=== PATIENT | female | born 1985 ===

== ENCOUNTER 2016-07-09 13:56 | Emergency (ER) | payer OTHER ==
--- NOTE | 2016-07-09 23:57 | ED NURSING NOTES ---
Clinical Report - Nurses [facility] [address] [place] [address] 07/09/2016 13:59 Patient: JOSEPH BARRERA TRIAGE Triage time 14:01. Acuity: LEVEL 2. Chief Complaint: DRUG OVERDOSE and SUICIDE ATTEMPT. Alert. No acute distress. ( Pt. states she attempted suicide by taking a bottle of pills. She said she took a bottle of Seroquel 50mg tabs. The spouse said he thinks there was approx. 15 tabs left in the bottle.). SEPSIS SCREEN: Sepsis Screen. Negative (no infection suspected/documented). GEREMIAS COMA SCORE: [place] Coma Scale: 15- eyes open spontaneously (4); best verbal response- oriented x 4 (5); best motor response- obeys commands (6). --14:13 Rosalee Braun R.N. 14:01 07/09/16. BP: 134/75. HR: 125. RR: 16. O2 saturation: 96%. Temp: 98.4 F. Pain level now 0/10. --14:13 Rosalee Braun R.N. Weight: 56.6 kg stated. Height/Length: 59 inches Per Patient. BMI: 25.2. --14:01 Rosalee Braun R.N. Medications LaMICtal Oral 125mg daily. --14:05 Rosalee Braun R.N. BusPIRone HCl Oral 15 mg, 2x a day. --14:05 Rosalee Braun R.N. TraZODone HCl Oral, as needed. --14:05 Rosalee Braun R.N. Control Pills. --14:05 Rosalee Braun R.N. SEROquel Oral 50mg, as needed. --14:05 Rosalee Braun R.N. Allergies No Known Drug Allergy. --14:05 Rosalee Braun R.N. History Arrived by private vehicle. Historian: patient. Accompanied by spouse. Primary physician (MORGAN in [place]). This occurred today 1 hour ago. Treatment SOFTWARE QUALITY AUTOMATION ENGINEER: None. PAST MEDICAL HX: Last normal menstrual period- 1 week ago. SOCIAL HX: Never smoker. No alcohol use or drug use. ABUSE ASSESSMENT: Abuse assessment: The patient was asked "Do you feel safe in your home?" and "Has anyone hurt you or threatened to hurt you?". No report of abuse. SELF HARM ASSESSMENT: A self harm assessment was performed. The patient answered "yes" to the question "Have you recently felt down, depressed, or hopeless?", "Have you noticed less interest or pleasure in doing things?", "Do you have thoughts of harming or killing yourself?", "Are you here because you tried to hurt yourself?" and "Have you ever tried to hurt yourself before today?" and "no" to the question "Have you recently had thoughts about harming or killing others?" and "Do you have any dangerous items in your possession?". In the ED the patient has been withdrawn. A further in-depth assessment is planned. She has been placed under continuous supervision. She was placed in direct sight of the nurses station. Clothes and valuables were removed and placed at the nurses station. The ED physician has been notified. NUTRITIONAL RISK ASSESSMENT: The nutritional risk assessment revealed no deficiencies. FUNCTIONAL ASSESSMENT: Functional assessment: no impairments noted. LEARNING NEEDS ASSESSMENT: The learning needs assessment revealed no barriers. --14:13 Rosalee Braun R.N. PROBLEMS: Suicidal Ideation. Anxiety Reaction. Depression. Abdominal Pain. Bipolar Disorder. --14:07 Rosalee Braun R.N. Interventions ID band on patient. Ambulatory. --14:13 Rosalee Braun R.N. PHYSICAL ASSESSMENT 14:01. Ambulatory to room. GENERAL / NEURO / PSYCH: Alert. Oriented X 4. Appears in no acute distress. Patient appears calm and cooperative. Gag reflex present. Patient's speech is slurred. RESPIRATORY: Respirations not labored. CVS: Capillary refill less than 2 seconds. SKIN: Skin intact. Skin is warm and dry. Affect appears within normal limits. --14:13 Rosalee Braun R.N. NURSING PROGRESS NOTES 14:05. call or contact centre team leader, pulse oximeter and NIBP monitor placed on patient; roll examiner- Lead II; monitor alarms on. Patient gowned. Head of bed elevated. Suicide precautions initiated: a safety sweep of the room has been completed. Room made safe. Continuous one on one supervision, family at bedside, clothing / valuables removed and placed at the nurse's station. ED Physician has been notified. Two patient identifiers checked. Call light placed in reach. Side rails up x 2. Bed placed in lowest position. Brakes of bed on. Patient ready for evaluation- chart flagged. --14:14 Rosalee Braun R.N. 14:06 07/09/2016 Site #1 started via IV in the right antecubital space with an 20g angiocath, with aseptic technique and good blood return; one attempt. Blood drawn: rainbow set. Labeled in the presence of the patient and sent to the lab. Saline lock flushed with 10 mL saline (accessed by JEFF Ortiz). --14:18 Rosalee Braun R.N. 14:08 07/09/2016 Started bag #1 1000 mL IV Fluids IV NS (Saline); at 1000 mL/hr over 1 hour(s) via site #1 via IV pump. Allergies verified and confirmed 5 rights. IV patency established. IV site checked: no pain, redness, or swelling. IV flushed thoroughly pre- and post-medication administration. --14:19 Rosalee Braun R.N. 14:19 07/09/2016 Activated Charcoal (Charcoal) PO 50 gm given. Allergies verified and confirmed 5 rights. --14:19 Rosalee Braun R.N. EKG time: (1407). EKG was ordered, performed by a tech and shown to the ED physician. --14:28 Maria Esther Magana 14:40 07/09/2016 Site #2 started via IV in the right wrist with an 20g angiocath; one attempt. Saline lock flushed with 10 mL saline. --14:46 Rosalee Braun R.N. <<STRICKEN ENTRY-- 14:46 07/09/2016 Started bag #1 1000 mL IV Fluids IV NS (Saline); at 1000 mL/hr over 1 hour(s) via site #2 via IV pump. Allergies verified and confirmed 5 rights. IV patency established. IV site checked: no pain, redness, or swelling. IV flushed thoroughly pre- and post-medication administration. --14:46 Rosalee Braun R.N. --END STRIKE>> Other. --15:14 Rosalee Braun R.N. ( Pt. remains alert and oriented x4 but is sleepy.). --14:47 Rosalee Braun R.N. 14:47 07/09/16. BP: 129/66. HR: 110. RR: 15. O2 saturation: 100%. --14:47 Rosalee Braun R.N. 14 fr montoya catheter. Reason for indwelling catheter: patient's decreased level of consciousness. During procedure hand hygiene observed and sterile equipment and aseptic technique used. Return of 200 mL yellow-colored clear urine; attached to bedside drainage bag positioned below the bladder and secured with velcro. She tolerated procedure well. --14:48 Rosalee Braun R.N. EKG time: (1407). EKG was ordered, performed by a tech and shown to the ED physician. --14:48 Rosalee Braun R.N. 14:46 07/09/2016 Started bag #2 1000 IV Fluids IV NS (Saline); at 1000 mL/hr over 1 hour(s) via site #2 via IV pump. Allergies verified and confirmed 5 rights. IV patency established. IV site checked: no pain, redness, or swelling. IV flushed thoroughly pre- and post-medication administration. --15:14 Rosalee Braun R.N. 15:15 07/09/16. BP: 118/64. HR: 100. RR: 18. O2 saturation: 100%. --15:16 Rosalee Braun R.N. 15:56 07/09/16. BP: 112/67. HR: 87. RR: 12. O2 saturation: 100%. Pain level now 0/10. --15:57 Rosalee Braun R.N. 15:10 07/09/2016 IV Fluids IV NS Discontinued: bag #1 infused. Total amount infused: 1000 mL. IV patency established. IV site checked: no pain, redness, or swelling. IV flushed thoroughly. --17:47 Rosalee Braun R.N. 15:14 07/09/2016 IV Fluids IV NS Discontinued: bag #2 infused. Total amount infused: 1000 mL. IV patency established. IV site checked: no pain, redness, or swelling. IV flushed thoroughly. --15:14 Rosalee Braun R.N. 17:48 07/09/16. BP: 106/65. HR: 73. RR: 10. O2 saturation: 100%. --17:49 Rosalee Braun R.N. Care transferred and report given (to JEFF Betancourt). --19:13 Rosalee Braun R.N. The patient is sleeping. --19:46 TonyaB, R.N. 19:45 07/09/16. BP: 96/61. HR: 76. RR: 18. O2 saturation: 99%. Temp: deferred. Pain level now: 0/10. --19:46 TonyaB, R.N. ( pt will awaken to painful stimuli, family is at bedside at this time, VSS, good urine output via montoya, clear yellow urine noted). --19:48 TonyaB, R.N. The patient is sleeping. ( VSS, pt will awaken to name, pt is very sleepy). --21:05 Shari, R.N. ( spoke with poison control and they have closed her case at this time unless we need them.). --21:48 TonyaB, R.N. The patient is sleeping. --22:11 TonyaB, R.N. 22:10 07/09/16. BP: 98/61. HR: 82. RR: 18. O2 saturation: 99%. Temp: deferred. Pain level now: 0/10. --22:11 TonyaB, R.N. ( pt sitting in bed and drinking water at this time, PAT team christinaal complete). --23:38 TonyaB, R.N. ( removed montoya, pt tolerated well). --23:56 TonyaB, R.N. 23:56 07/09/16. BP: 101/64. HR: 72. RR: 16. O2 saturation: 99%. Temp: 98.4 F. Pain level now: 0/10. --23:57 TonyaB, R.N. Intake & Output Urine: 800 mL, with return of yellow-colored clear urine; attached to bedside drainage bag. --19:51 Boris Mccarthy Urine, with return of 300 mL yellow-colored clear urine. --23:56 Boris Mccarthy DISPOSITION / DISCHARGE 00:17 07/10/2016 Site #1 removed upon discharge. Catheter intact. Bandaid applied. --00:17 Boris Mccarthy 00:17 07/10/2016 Site #2 removed upon discharge. Catheter intact. Bandage applied. --00:17 Boris Mccarthy Departure time: 00:17. Condition at departure: improved. No learning barriers present. Discharge instructions provided and reviewed with the patient and spouse. Reviewed referral to a psychiatrist. Patient and spouse verbalized understanding. Written instructions provided in Venezuelan. No warning instructions, medication instructions, treatment instructions, diet instructions or activity restrictions. No follow up contact number given or stop smoking instructions. No work note given. The patient was discharged by the physician. She was discharged home and accompanied by spouse. She left the Emergency Department ambulatory and via private vehicle. Spouse driving. FALL RISK ASSESSMENT: Fall risk assessment completed. No fall risk identified. --00:17 Boris Mccarthy 00:17 07/10/16. BP: deferred. HR: deferred. RR: deferred. O2 saturation: deferred. Temp: deferred. Pain level now: 0/10. --00:21 Boris Mccarthy Locked/Released at 07/10/2016 0:22 by Boris Mccarthy
--- NOTE | 2016-07-09 23:57 | ED CLINICAL REPORT ---
Clinical Report - Physicians/Mid Levels [facility] [address] [place] [address] 07/09/2016 13:59 Patient: JOSEPH BARRERA Time Seen: 14:03; initial patient contact. Arrived- By private vehicle. Historian- patient and family. CPT: ER phys charges level 4 (#[id number]). HISTORY OF PRESENT ILLNESS Chief Complaint: DRUG OVERDOSE and SUICIDE ATTEMPT. This occurred 1 hour ago. Toxic symptoms present in ED with drowsiness. Single drug taken- ~ 15 Seroquel 50 mg IR. Rescue was likely for this event. She sought help. She has experienced situational problems related to spouse, work and school. No alcohol recently or recent drug use. The symptoms are described as moderate. The patient has been depressed. No anger, hallucinations or delusions. Has had suicidal thoughts but not been upset. Not paranoid. Similar symptoms previously: Several times. Recent medical care: Not recently seen/assessed. REVIEW OF SYSTEMS No headache, dizziness, chest pain, palpitations or abdominal pain. No vomiting. All systems otherwise negative, except as recorded above. PAST HISTORY Prior suicide attempt. ( Suicidal Ideation. Anxiety Reaction. Depression. Abdominal Pain. Bipolar Disorder). Medications: SEROquel Oral 50mg, as needed. Control Pills. TraZODone HCl Oral, as needed. BusPIRone HCl Oral 15 mg, 2x a day. LaMICtal Oral 125mg daily. Allergies: No Known Drug Allergy. SOCIAL HISTORY Never smoker. No alcohol use or drug use. Has social support. Has place to stay. ADDITIONAL NOTES The nursing notes have been reviewed. PHYSICAL EXAM Vital Signs: 07/09/2016 14:01 BP: 134/75. HR: 125. RR: 16. O2 saturation: 96%. Temp: 98.4 F. Have been reviewed. Blood pressure normal. Tachycardic. Respiratory rate normal. Temperature normal. Oxygen saturation normal. Appearance: The patient is lethargic. Patient in mild distress. Eyes: Pupils equal, round and reactive to light. No nystagmus. Extraocular movements normal. ENT: Pharynx normal. No trouble handling secretions. Neck: Normal inspection. CVS: Tachycardia. Heart sounds normal. Rhythm normal. Respiratory: No respiratory distress. Breath sounds normal. Abdomen: Soft and nontender. No organomegaly. Skin: Skin warm and dry. Normal skin color. No rash. Extremities: No lower extremity edema. Neuro: No seizure activity. Alertness is decreased. Speech normal. Cranial nerves normal (as tested). No cerebellar findings. No motor deficit. No sensory deficit. LABS, X-RAYS, AND EKG EKG: EKG time: (1407). Narrow-complex tachycardia (ventricular rate 122). Sinus tachycardia. Normal P waves. Normal NOLVIA. Normal QRS complex. Normal axis. Normal ST and T waves, QT and QTc. Prior EKG unavailable. The study has been interpreted contemporaneously by me. The study has been independently viewed by me. The EKG appears to be a good tracing. Interpretation time: 1407. EKG #2: EKG time: (1613). No acute process. No acute ischemia. Normal EKG. Normal sinus rhythm. Rate: 86. Normal P waves. Normal NOLVIA. Normal QRS complex. Normal axis. Normal ST and T waves, QT and QTc. The study has been interpreted contemporaneously by me. The study has been independently viewed by me. The EKG appears to be a good tracing. I agree with and confirm the computer reading of the EKG. Interpretation time: 1613. Laboratory Tests: UA-Culture if indicated: (PRITI: 07/09/2016 14:45) ( MsgRcvd 07/09/2016 15:16) Final results Test Result Flag Units (Reference) URINE COLOR YELLOW URINE APPEARANCE CLEAR URINE GLUCOSE NEGATIVE (NEGATIVE) URINE BILIRUBIN NEGATIVE (NEGATIVE) URINE KETONE NEGATIVE (NEGATIVE) URINE SPECIFIC GRAVITY <= 1.005 L (1.010-1.030) URINE PH 6.0 (5.0-8.0) URINE PROTEIN NEGATIVE (NEGATIVE) URINE UROBILINOGEN 0.2 EU/dL (0.2-1.0) URINE NITRITE NEGATIVE (NEGATIVE) URINE BLOOD NEGATIVE (NEGATIVE) URINE LEUK ESTERASE NEGATIVE (NEGATIVE) URINE RBC NONE SEEN rbc/hpf (0-1) URINE WBC RARE wbc/hpf (0-1) URINE EPITHELIAL CELLS 0-1 EPI/hpf (0-5) URINE BACTERIA NONE SEEN (NONE SEEN) URINE COMMENT CULT NOT INDICATED URINE CULTURES ARE SET-UP BASED ON THE FOLLOWING CRITERIA:POSITIVE NITRITEPOSITIVE LEUKOCYTE ESTERASEGREATER THAN 10 WHITE BLOOD CELLSMODERATE (2+) OR GREATER BACTERIA Urine: (PRITI: 07/09/2016 14:45) ( [facility] 07/09/2016 14:58) Final results Test Result Flag Units (Reference) URINE NEGATIVE CBC w Diff: (PRITI: 07/09/2016 14:07) ( [facility] 07/09/2016 14:24) Final results Test Result Flag Units (Reference) WHITE BLOOD COUNT 5.6 K/uL (4.5-11.5) RED BLOOD COUNT 4.87 M/uL (4.00-5.20) HEMOGLOBIN 14.6 gm/dL (12.0-16.0) HEMATOCRIT 44.1 % (36.0-46.0) MEAN CELL VOLUME 91 fL (80-100) MEAN CORPUSCULAR HGB 30 pg (26-34) MEAN CORPUSCULAR HGB CONC 33 g/dL (31-37) RED CELL DISTRIBUTION WIDTH 12.8 % (11.6-14.8) PLATELET COUNT 161 K/uL (150-400) NEUTROPHIL % 48.5 L % (50-75) LYMPH % 42.6 H % (25-40) MONO % 6.7 % (3-14) EOSINOPHIL % 1.2 % (0-4) BASOPHIL % 1.0 % (0-2) PT with INR: (PRITI: 07/09/2016 14:07) ( [facility] 07/09/2016 14:26) Final results Test Result Flag Units (Reference) INR 1.0 (0.8-1.2) Low Intensity Therapy: INR 1.5-2.0 PT range 18.5-23.1Mod.Intensity Therapy: INR 2.0-3.0 PT range 23.1-31.5High Intensity Therapy: INR 2.5-3.5 PT range 27.4-35.5High Intensity Therapy 2: INR 3.0-4.0 PT range 31.5-39.3 APTT 29 SECONDS (24-34) Urine Drug Screen: (PRITI: 07/09/2016 14:45) ( [facility] 07/09/2016 15:23) Final results Test Result Flag Units (Reference) AMPHETAMINE/METHAMPHETAMINE NEGATIVE (NEGATIVE) BARBITURATE NEGATIVE (NEGATIVE) BENZODIAZEPINE NEGATIVE (NEGATIVE) CANNABINOID NEGATIVE (NEGATIVE) COCAINE NEGATIVE (NEGATIVE) ECSTASY NEGATIVE (NEGATIVE) METHADONE NEGATIVE (NEGATIVE) OPIATE POSITIVE H (NEGATIVE) The urine drug screen is a qualitative screening test fordrug overdose and abuse. All screen results should beconsidered as presumptive.Drugs screened for are as follows:BenzodiazepinesCocaineAmphetamines/MetamphetaminesTHC (Tetrahydrocannabinol)OpiatesBarbituratesEcstasyMethadonePositive results are unconfirmed. For confirmation, notifythe lab for the specimen to be sent to the reference lab.All confirmations must be performed by a differentmethodology.The ingestion of natural herbal and plant productscontaining Ephedra/Ephedra metabolites can produce in urineone or more substances capable of cross reacting withamphetamine/methamphetamine immunoassays. These testsprovide a preliminary result only. A more specificalternative chemical method must be used to obtain aconfirmed analytical result. Salicylate Level: (PRITI: 07/09/2016 14:07) ( [facility] 07/09/2016 14:35) Final results Test Result Flag Units (Reference) SALICYLATE <2.8 L mg/dL (2.8-20) CMP: (PRITI: 07/09/2016 14:07) ( [facility] 07/09/2016 15:01) Final results Test Result Flag Units (Reference) GLUCOSE 144 H mg/dL (70-110) BUN 11 mg/dL (7-18) CREATININE 0.9 mg/dL (0.6-1.3) Estimated GFR >60 mL/min Estimated GFR- >60 mL/min Note: Persistent reduction over 3 months in eGFR<60 mL/min/1.73 m2 defines CKD. Patients with eGFR values>=60 mL/min/1.73 m2 may also have CKD if evidence ofpersistent proteinuria. Additional information may be foundat www.kidney.org. SODIUM 140 mmol/L (136-145) POTASSIUM 3.9 mmol/L (3.5-5.1) CHLORIDE 102 mmol/L (98-107) CARBON DIOXIDE 25 mmol/L (21-32) CALCIUM 9.0 mg/dL (8.5-10.1) TOTAL PROTEIN 7.6 g/dL (6.4-8.2) ALBUMIN 3.9 g/dL (3.3-5.0) BILIRUBIN, TOTAL 0.5 mg/dL (0.0-1.0) ALKALINE PHOSPHATASE 62 U/L (46-116) AST (SGOT) 16 U/L (15-37) ALT (SGPT) 23 U/L (12-78) ETHYL ALCOHOL <3 L mg/dL (3-10) ACETAMINOPHEN < 2.0 L ug/mL (10-30) . PROGRESS AND PROCEDURES Course of Care: Since the Seroquel was IR and her own, poison control recommended activated charcoal and EKG to monitor for QT prolongation and monitor for 6 hours for seizures. Pt observed for 6 hours and did not have any adverse effects. PAT team here and had cleared the patient to go home. Patient/family counseled. Disposition: Discharged. Condition: stable. CLINICAL IMPRESSION Intentional single drug overdose (seroquel). Acute bipolar I disorder with the current episode being hypomanic and moderately depressed without psychosis. INSTRUCTIONS (Get to arranged counselor appointment , next week. Do not take seroquel until MD approves. Call crisis line as needed. Follow no harm contract.). Warnings: Further evaluation is necessary. GENERAL WARNINGS: Return or contact your physician immediately if your condition worsens or changes unexpectedly, if not improving as expected, or if other problems arise. Your Current Medications: CONTINUE TAKING THE FOLLOWING MEDICATIONS: Control Pills*. BusPIRone HCl Oral : 15 mg 2x a day. LaMICtal Oral : 125mg daily. SEROquel Oral : 50mg, prn. TraZODone HCl Oral : prn. Follow-up: Follow up with your doctor in one week. Call for an appointment. Understanding of the discharge instructions verbalized by patient. (Electronically signed by Matthew Laboy MD 07/12/2016 21:28)
--- NOTE | 2016-07-09 23:58 | ED ORDER SUMMARY ---
..... Patient: JOSEPH BARRERA OrderSheet [facility] VisitID: [id number] [place] [address] 30y, F Registration Date/Time: 07/09/2016 ORDER SHEET Weight: 56.6 kg (stated) Allergies: No Known Drug Allergy GENERAL ORDERS: CBC w Diff Urgent (14:10 07/09/2016 Noemy Gonzales) (Ack 14:15 Tigist) (14:21 SReitz R.N.) CMP Urgent (14:07/09/2016 Noemy Gonzales) (Ack 14:15 [place]) (14:21 SReitz R.N.) UA-Culture if indicated Urgent (14:10 07/09/2016 Noemy Gonzales) (Ack 14:15 [place]) (14:46 SReitz R.N.) PT with INR Urgent (14:07/09/2016 Noemy Gonzales) (Ack 14:15 [place]) (14:21 SReitz R.N.) PTT Urgent (14:10 07/09/2016 Noemy Gonzales) (Ack 14:15 [place]) (14:21 SReitz R.N.) Urine Drug Screen Urgent (14:10 07/09/2016 Noemy Gonzales) (Ack 14:15 RKaruga) (14:46 SReitz R.N.) Urine Urgent (14:10 07/09/2016 Noemy Gonzales) (Ack 14:15 Tigist) (14:46 SReitz R.N.) Salicylate Level Urgent (14:10 07/09/2016 Noemy Gonzales) (Ack 14:15 Tigist) (14:21 SReitz R.N.) Acetaminophen Level Urgent (14:10 07/09/2016 Noemy Gonzales) (Ack 14:15 Tigist) (14:21 SReitz R.N.) Ethyl Alcohol Urgent (14:07/09/2016 Noemy Gonzales) (Ack 14:15 Tigist) (14:21 SReitz R.N.) EKG - ER Stat (15:58 07/09/2016 SReitz R.N. verbal order read back to Noemy Gonzales) (16:13 Lissa) MEDICATION ORDERS: Activated Charcoal PO 50 gm (NOW) (14:09 07/09/2016 Noemy Gonzales) (14:19 Mer Escalante) IV FLUIDS: IV NS : initial bolus none -, then 1000 mL/hr for X1 (NOW) (14:06 07/09/2016 Noemy Gonzales) (14:19 Mer Escalante) ORDER SHEET NOTES: [Electronically signed by Cindy Ley R.N. (00:22 07/10/2016)] [Electronically signed by Matthew Laboy MD (21:28 07/12/2016)] [Electronically locked/signed by Cindy Ley R.N. (00:07/10/2016)]
--- NOTE | 2016-07-09 23:58 | ED ORDER SUMMARY ---
..... Patient: JOSEPH BARRERA OrderSheet [facility] VisitID: [id number] [place] [address] 30y, F Registration Date/Time: 07/09/2016 ORDER SHEET Weight: 56.6 kg (stated) Allergies: No Known Drug Allergy GENERAL ORDERS: CBC w Diff Urgent (14:10 07/09/2016 Noemy Gonzales) (Ack 14:15 Tigist) (14:21 SReitz R.N.) CMP Urgent (14:07/09/2016 Noemy Gonzales) (Ack 14:15 [place]) (14:21 SReitz R.N.) UA-Culture if indicated Urgent (14:10 07/09/2016 Noemy Gonzales) (Ack 14:15 [place]) (14:46 SReitz R.N.) PT with INR Urgent (14:07/09/2016 Noemy Gonzales) (Ack 14:15 [place]) (14:21 SReitz R.N.) PTT Urgent (14:10 07/09/2016 Noemy Gonzales) (Ack 14:15 [place]) (14:21 SReitz R.N.) Urine Drug Screen Urgent (14:10 07/09/2016 Noemy Gonzales) (Ack 14:15 RKaruga) (14:46 SReitz R.N.) Urine Urgent (14:10 07/09/2016 Noemy Gonzales) (Ack 14:15 Tigist) (14:46 SReitz R.N.) Salicylate Level Urgent (14:10 07/09/2016 Noemy Gonzales) (Ack 14:15 Tigist) (14:21 SReitz R.N.) Acetaminophen Level Urgent (14:10 07/09/2016 Noemy Gonzales) (Ack 14:15 Tigist) (14:21 SReitz R.N.) Ethyl Alcohol Urgent (14:07/09/2016 Noemy Gonzales) (Ack 14:15 Tigist) (14:21 SReitz R.N.) EKG - ER Stat (15:58 07/09/2016 SReitz R.N. verbal order read back to Noemy Gonzales) (16:13 Lissa) MEDICATION ORDERS: Activated Charcoal PO 50 gm (NOW) (14:09 07/09/2016 Noemy Gonzales) (14:19 Mer Escalante) IV FLUIDS: IV NS : initial bolus none -, then 1000 mL/hr for X1 (NOW) (14:06 07/09/2016 Noemy Gonzales) (14:19 Mer Escalnate) ORDER SHEET NOTES: [Electronically signed by Cindy Ley R.N. (00:22 07/10/2016)] [Electronically signed by Matthew Laboy MD (21:28 07/12/2016)] [Electronically locked/signed by Cindy Ley R.N. (00:07/10/2016)]
--- NOTE | 2016-07-12 21:28 | ED MED RECONCILIATION SUMMARY ---
Patient: JOSEPH BARRERA Medication Reconciliation Report Located Within [facility] VisitID: [id number] [address] [place] [address] 30y, F Registration Date/Time: 07/09/2016 Weight: 56.6 kg Height/Length: 59 in. BMI: 25.2 ALLERGIES: No Known Drug Allergy The patient's Home Medications are listed below: CONTINUE TAKING THE FOLLOWING MEDICATIONS: Control Pills BusPIRone HCl Oral 15 mg, 2x a day LaMICtal Oral 125mg daily SEROquel Oral 50mg TraZODone HCl Oral The source(s) of the original Home Medication information: Not obtained. The following Medications were given to the patient in the Emergency Department: IV NS IV Fluids bolus 0, then 1000 mL/hr, administered: 07/09/2016 2:08:00 PM Activated Charcoal [PO] PO 50 gm, administered: 07/09/2016 2:19:00 PM IV NS IV Fluids bolus 0, then 1000 mL/hr, administered: 07/09/2016 2:46:00 PM The following Medications were prescribed to the patient: None.
--- NOTE | 2016-07-12 21:28 | ED MAR SUMMARY ---
..... Medication Administration Record [facility] [address] [place] [address] Patient: JOSEPH BARRERA Visit ID: [id number] 30y, F Weight: 56.6 kg Height/Length: 59 in BMI: 25.2 ALLERGIES: No Known Drug Allergy Start 14:08 07/09/2016 Rosalee Braun R.N., Stop 15:10 07/09/2016 Rosalee Braun R.N. Medication Administered: IV NS (SALINE), Dose: IV Fluids over 1 hour(s), Rate: 1000 mL/hr, Dispensed: 1000 mL bag, Site: #1 right AC. Medication Ordered: IV NS : initial bolus none -, then 1000 mL/hr for X1 (NOW). Given 14:19 07/09/2016 Rosalee Braun R.N. Medication Administered: ACTIVATED CHARCOAL [PO] (CHARCOAL), Dose: 50 gm PO. Medication Ordered: Activated Charcoal PO 50 gm (NOW). Start 14:46 07/09/2016 Rosalee Braun R.N., Stop 15:14 07/09/2016 Rosalee Braun R.N. Medication Administered: IV NS (SALINE), Dose: IV Fluids over 1 hour(s), Rate: 1000 mL/hr, Dispensed: 1000 mL bag, Site: #2 right wrist. Medication Ordered: IV NS : initial bolus none -, then 1000 mL/hr for X1 (NOW).
--- NOTE | 2016-07-12 21:28 | ED DISCHARGE INSTRUCTIONS ---
Patient: JOSEPH BARRERA General Instructions [facility] VisitID: [id number] [place] [address] 30y, F Registration Date/Time: 07/09/2016 Intentional single drug overdose (seroquel). Acute bipolar I disorder with the current episode being hypomanic and moderately depressed without psychosis. INSTRUCTIONS (Get to arranged counselor appointment , next week. Do not take seroquel until MD approves. Call crisis line as needed. Follow no harm contract.). Warnings: Further evaluation is necessary. GENERAL WARNINGS: Return or contact your physician immediately if your condition worsens or changes unexpectedly, if not improving as expected, or if other problems arise. Your Current Medications: CONTINUE TAKING THE FOLLOWING MEDICATIONS: Control Pills*. BusPIRone HCl Oral : 15 mg 2x a day. LaMICtal Oral : 125mg daily. SEROquel Oral : 50mg, prn. TraZODone HCl Oral : prn. Follow-up: Follow up with your doctor in one week. Call for an appointment. Understanding of the discharge instructions verbalized by patient. ADDITIONAL INFORMATION Overdose, Intentional (Adult: Psych Evaluation) You have been evaluated and treated for taking a drug or chemical product with the intent to harm yourself. There is no sign of a toxic effect at this time. It is not likely that any new symptoms will appear. As a safeguard, watch for new symptoms during the next 24 hours (see below). The exact symptom will depend on the type of drug or chemical taken. An intentional overdose is likely to be a sign that you are depressed, or that you are very angry with yourself or someone else. In order to reduce the risk of harming yourself, we will arrange for you to have a psychiatric evaluation. Home Care: If LIQUID CHARCOAL was given to neutralize what was swallowed, it will cause a black color to the stools for 1-2 days. Usually, a laxative (sorbitol) is given with charcoal to speed the removal of any toxins from the intestinal tract. This may cause diarrhea for up to 24 hours. If no laxative was given with charcoal, you may get constipated. If this occurs, you may take an [id number] laxative such as Dulcolax pills or suppository. Follow Up with your doctor if all symptoms do not resolve within 24 hours or if constipation is not relieved by one or two doses of laxatives. If you are being discharged for immediate evaluation at a psychiatric hospital or clinic on a voluntary basis, you must go directly there with a responsible adult. If you have been placed on a legal 72 hour psychiatric hold, a ride to a psychiatric facility will be arranged for you. Get Prompt Medical Attention if any of the following occur: Excess drowsiness or inability to be awakened Rapid heart beat, you feel shaky, or you have a seizure Fast breathing (over 25 breaths/minute) or slow breathing (less than 8 breaths/minute) Feeling shortness of breath Fever of 100.4F (38C) or higher, or as directed by your healthcare provider Vomiting or diarrhea for more than 24 hours Blood in stools or vomit (black or red color) Chest or abdominal pain Dizziness, weakness or fainting Thoughts of harming yourself again Bipolar Disorder Bipolar disorder (formerly called manic depression) is an illness that causes strong mood swings between depression and stephon. This can interfere with work and relationships. In a manic episode, you may think fast and do things quickly. It may seem like you are getting a lot done. At first, this may feel very good; but in the extreme this can lead to a lifestyle that is disorganized, chaotic, and includes risky behavior (spending sprees, sexual acting-out, or drug use). In later stages, it may affect eating (no interest in food) and sleeping (unable to sleep for days at a time). Speech may speed up and become difficult for others to understand. You may appear to others as if you are in your own world. In a depressive episode, you may feel a lack of interest in normal activities. Sometimes there is sadness or guilt without any clear reason. Thinking may become slow and there can be a lack energy or feeling of hopelessness. Some people have thoughts of harming themselves at this stage. Thoughts can even turn to suicide. Between these two phases you may actually feel okay. This does not mean that the illness is gone. People with this disorder will usually have to treat it all of their life. Medication and good care can greatly reduce the symptoms. The exact cause of this illness is unknown. However, there is a genetic link that makes a person more likely to get this problem. Also, the use of drugs such as speed (amphetamine) and cocaine increase the chances of this illness appearing. Home Care: Be sure to take your medicine even if you think you dont need it. Talk with your family about your thoughts and feelings. Follow Up with your doctor or therapist as directed by our staff. They can help you to find ways to improve your life. For more information: The National [place] [employer] Mental Illness www.dar[employer].org 645-177-1880. Get Prompt Medical Attention if any of the following occur: Feeling like your symptoms are getting worse (depression, agitation, excess energy) Unable to eat or sleep for more than 48 hours Feeling out of control (racing thoughts, poor concentration) Feeling like you want to harm yourself or another Being unable to care for yourself You have been given the following additional information: Overdose, Intentional (Adult) Bipolar Disorder (Electronically signed by Matthew Laboy MD 07/12/2016 21:28)
--- NOTE | 2016-07-12 21:28 | ED MED RECONCILIATION SUMMARY ---
Patient: JOSEPH BARRERA Medication Reconciliation Report [facility] VisitID: [id number] [address] [place] [address] 30y, F Registration Date/Time: 07/09/2016 Weight: 56.6 kg Height/Length: 59 in. BMI: 25.2 ALLERGIES: No Known Drug Allergy The patient's Home Medications are listed below: CONTINUE TAKING THE FOLLOWING MEDICATIONS: Control Pills BusPIRone HCl Oral 15 mg, 2x a day LaMICtal Oral 125mg daily SEROquel Oral 50mg TraZODone HCl Oral The source(s) of the original Home Medication information: Not obtained. The following Medications were given to the patient in the Emergency Department: IV NS IV Fluids bolus 0, then 1000 mL/hr, administered: 07/09/2016 2:08:00 PM Activated Charcoal [PO] PO 50 gm, administered: 07/09/2016 2:19:00 PM IV NS IV Fluids bolus 0, then 1000 mL/hr, administered: 07/09/2016 2:46:00 PM The following Medications were prescribed to the patient: None.
--- NOTE | 2016-07-12 21:28 | ED MAR SUMMARY ---
..... Medication Administration Record [facility] [address] [place] [address] Patient: JOSEPH BARRERA Visit ID: [id number] 30y, F Weight: 56.6 kg Height/Length: 59 in BMI: 25.2 ALLERGIES: No Known Drug Allergy Start 14:08 07/09/2016 Rosalee Braun R.N., Stop 15:10 07/09/2016 Rosalee Braun R.N. Medication Administered: IV NS (SALINE), Dose: IV Fluids over 1 hour(s), Rate: 1000 mL/hr, Dispensed: 1000 mL bag, Site: #1 right AC. Medication Ordered: IV NS : initial bolus none -, then 1000 mL/hr for X1 (NOW). Given 14:19 07/09/2016 Rosalee Braun R.N. Medication Administered: ACTIVATED CHARCOAL [PO] (CHARCOAL), Dose: 50 gm PO. Medication Ordered: Activated Charcoal PO 50 gm (NOW). Start 14:46 07/09/2016 Rosalee Braun R.N., Stop 15:14 07/09/2016 Rosalee Braun R.N. Medication Administered: IV NS (SALINE), Dose: IV Fluids over 1 hour(s), Rate: 1000 mL/hr, Dispensed: 1000 mL bag, Site: #2 right wrist. Medication Ordered: IV NS : initial bolus none -, then 1000 mL/hr for X1 (NOW).
== END 2016-07-10 00:15 | disposition home or self-care (01) ==
LOC: ED SRH 13:56
DX: T50.902A Poisoning by unspecified drugs, medicaments and biological substances, intentional self-harm, initial encounter (principal); F31.12 Bipolar disorder, current episode manic without psychotic features, moderate; F32.9 Major depressive disorder, single episode, unspecified; Z79.899 Other long term (current) drug therapy
CPT/HCPCS: 90004; 90100; 92010; 92760; 92761; 92762; 92763; 92764; 92765; 92766; 92767; 92780; 93070; 94001; 94060; 95059; 97000